=== PATIENT | female | born 1970 | race Caucasian/White ===

== ENCOUNTER 2017-06-23 09:46 | Day surgery (SDC) | payer OTHER ==
[2017-05-28 12:35] VITALS: BMI 36.8
[2017-06-23] MEDS ORDERED: PROPOFOL 20 ML ONE ×2 (10:14)
[2017-06-23 11:52] VITALS: TEMP 98.2
[2017-06-23 13:03] VITALS: BP 110/52; PULSE 66
== END 2017-06-23 12:15 | disposition home or self-care (01) ==
LOC: FASU-ENDO 09:46
PROVIDERS: ATTEND Internal Medicine Gastroenterology
PROC: 0DJD8ZZ Inspection of Lower Intestinal Tract, Via Natural or Artificial Opening Endoscopic (ICD-10-PCS; principal; 2017-06-23 11:18)
DX: Z12.11 Encounter for screening for malignant neoplasm of colon (principal)
CPT/HCPCS: 84703